=== PATIENT | male | born 1955 | race Caucasian/White ===

== ENCOUNTER 2024-04-04 06:00 | Emergency (ER) | payer OTHER ==
[~2024-04-04] VITALS: Ht 177.8 cm; Wt 90.7 kg
[2024-04-04] MEDS ORDERED: Ketorolac Tromethamine 30mg Vial IM ONE (06:30)
[2024-04-04] MEDS ORDERED: METPRE4DP PO (07:18)
[2024-04-04] MEDS ORDERED: IBUP600 PO (07:18)
== END 2024-04-04 07:29 | disposition home or self-care (01) ==
LOC: ER 06:00
DX: M50.30 Other cervical disc degeneration, unspecified cervical region (principal); C80.1 Malignant (primary) neoplasm, unspecified
CPT/HCPCS: 72125; 96372; 99283-25; J1885